=== PATIENT | male | born 1985 | race American Indian/Alaskan Native ===

== ENCOUNTER 2022-02-17 18:48 | Emergency (ER) | payer SELFPAY ==
--- NOTE | 2022-02-17 23:55 | Emergency Department Report ---
ED General Adult HPI - General Chief complaint: Fever Stated complaint: COLD/FEVER Time Seen by Provider: 02/17/22 23:46 Source: patient Mode of arrival: Ambulatory Limitations: No Limitations - History of Present Illness Initial comments: Patient is a 36-year-old male who presents with "cold and fever symptoms for the last 2 weeks. He states his main symptom is throat pain and hoarseness. No dysphagia but he has had a dyne aphasia. He is also had some runny nose and cough last fever was 3 days ago. He has had some headache and myalgias. Anorex ia as well as ageusia. He is not tested for COVID during this 2-week.. He is not vaccinated. Denies any health problems but his blood pressure is elevated in triage. - Related Data Allergies Allergy/AdvReac Type Severity Reaction Status Date / Time No Known Allergies Allergy Unverified 02/18/22 00:05 ED Review of Systems ROS: Stated complaint: COLD/FEVER Other details as noted in HPI ED Past Medical Hx - Past Medical History Previous Medical History?: No - Surgical History Past Surgical History?: No - Social History Smoking Status: Never Smoker ED Physical Exam - General Limitations: No Limitations ED Course Vital Signs 02/17/22 02/18/22 19:54 00:37 Temperature 98.3 F Pulse Rate 95 H 65 Respiratory 18 12 Rate Blood Pressure 168/103 Blood Pressure 129/95 [Left] O2 Sat by Pulse 99 98 Oximetry Repeat blood pressure 129/95 - Reevaluation(s) Reevaluation #1: 02/18/22 01:16 Strep screen negative ED Medical Decision Making - Medical Decision Making Strep screen negative. Will provide instructions on supportive care for likely viral syndrome. Likely COVID. - Differential Diagnosis Strep pharyngitis. Viral syndrome. COVID. Influenza. Critical care attestation.: If time is entered above; I have spent that time in minutes in the direct care of this critically ill patient, excluding procedure time. ED Disposition Clinical Impression: Viral syndrome, Suspected COVID-19 virus infection Disposition: 01 HOME / SELF CARE / HOMELESS Is pt being admited?: No Condition: Stable Instructions: COVID-19 Frequently Asked Questions, Viral Respiratory Infection, [id number], COVID-19: How to Protect Yourself and Others - CDC, Prevent the Spread of COVID-19 if You Are Sick - [facility] Additional Instructions: Guaifenesin 1200 mg twice daily extended release. Tylenol or Motrin as needed for fever pain. Warm compresses to the sinuses, warm salt water gargles, nasal saline. Return to ER if increasing shortness of breath, unable to keep down food or drink or take care of yourself. Quarantine until all symptoms improving and fever free for 24 hours without Tylenol or Motrin. Referrals: KRISTINE ANGEL MD [Primary Care Provider] - 3-5 Days Forms: Work/School Release Form(ED) Time of Disposition: 01:21
[2022-02-18 00:38] VITALS: BP 129/95
[2022-02-18] MEDS ORDERED: predniSONE 20 MG TAB PO ONE (01:00)
== END 2022-02-18 01:31 | disposition home or self-care (01) ==
LOC: ED 18:48
DX: B34.9 Viral infection, unspecified (principal); Z20.822 Contact with and (suspected) exposure to COVID-19; R05.9 Cough, unspecified; J00 Acute nasopharyngitis [common cold]; R50.9 Fever, unspecified; Z79.899 Other long term (current) drug therapy
CPT/HCPCS: 87116; 87430; 99283